=== PATIENT | female | born 2000 | race Caucasian/White ===

== ENCOUNTER 2021-06-27 10:40 | Emergency (ER) | payer SELFPAY ==
--- NOTE | ~2021-06-27 | US_ITS ---
EXAMINATION: US OB <= 14 weeks fetus EXAM DATE: 06/27/2021 17:08 INDICATION: and bleeding and vomiting. 1st trimester. TECHNIQUE: Pelvic obstetrical transabdominal sonogram was performed by a technologist. There are mu ltiple grayscale and Doppler images available for interpretation. There are no prior studies for [employer]. FINDINGS: Uterus measures 7.9 x 4.6 x 3.0 cm. There is intrauterine gestation sac. pole with heart rate confirmed at 117 beats per minute. The 5 mm crown-rump length corresponds to estimated ge stational age by ultrasound of 6 weeks 1 day, estimated date of confinement 02/19/2022. Yolk sac is i dentified. There is no sonographic evidence of subchorionic hemorrhage. Ovaries are morphological ly normal. No extrauterine is identified. IMPRESSION: Early live intrauterine gestation. Reviewed, dictated and finalized at location [facility]
[2021-06-27 11:05] VITALS: BP 138/99; PULSE 91; RESP 16; TEMP 36.5; O2SAT 100
[2021-06-27 13:07] VITALS: BP 123/86; PULSE 68; RESP 17; O2SAT 100
[2021-06-27 13:59] VITALS: BP 115/82; PULSE 71; RESP 19; O2SAT 99
[2021-06-27] MEDS: FAMOTIDINE 20 MG/2 ML VIAL IV PUSH (14:04)
[2021-06-27] MEDS: SODIUM CHLORIDE 0.9% IV 1,000 ML 999 ML IV CONT ×2 (14:05→16:40)
--- NOTE | 2021-06-27 14:06 | ED.GENADULT ---
HPI - General Adult General Chief complaint: Nausea/Vomiting/Diarrhea Stated complaint: Booster shot 5 days ago- throwing up since Time Seen by Provider: 06/27/21 13:49 Source: RN notes reviewed History of Present Illness HPI narrative: Patient presents emergency room from home for nausea vomiting. Patient states that she has been having nausea vomiting for the past 5 days and is unable to keep anything down. States that she has no abdominal pain with this except for when she is vomiting when she has cramping she denies any fevers or chills chest pain shortness of breath diarrhea or any other symptoms. Patient states she did just receive her COVID-19 vaccination booster 5 days ago as well states she is not taking medication at home Related Data Allergies Allergy/AdvReac Type Severity Reaction Status Date / Time No Known Allergies Allergy Mild Verified 10/11/07 00:18 Review of Systems Review of Systems: Gen.: Denies fevers or chills ENT: Denies congestion Respiratory: Denies shortness of breath or cough CV: Denies chest pain or palpitations GI: See HPI denies burning, urgency, frequency or hematuria Musculoskeletal: Denies back pain or muscle pain Neuro: Denies numbness, tingling, weakness or focal weakness Skin: Denies rash Except as documented, all other systems reviewed and negative [facility] Past Medical History Medical History (Updated 06/27/21 @ 17:33 by Rohit Tucker DO) Patient denies significant medical history Social History Social History (Updated 06/27/21 @ 14:07 by Rohit Tucker DO) Smoking status: Never smoker Exam Narrative: APPEARANCE: No acute distress, nontoxic, resting in bed EYES: EOMI HEENT: Normocephalic, atraumatic, OMM RESPIRATORY: No respiratory distress Clear to auscultation bilaterally with no rhonchi wheezing or rales. CARDIOVASCULAR: Regular rate and rhythm without murmurs rubs or gallops. ABDOMINAL: Soft, nontender, nondistended, no rebound or guarding : Normal external exam small amount of dark maroon blood in vaginal canal cervix closed MUSCULOSKELETAl: Moves all extremities. No clubbing, cyanosis or edema. NEURO: Awake and alert. Following commands, speech normal, no focal deficits SKIN:: Warm, dry. No rashes lesions or abrasions PSYCHIATRIC: Normal affect/mood, Course Course Emergency Course: Discussed with patient positive test she is unaware she was she is G1, P0 and does not currently have an DOMINATRIX Patient states nausea is better following Phenergan : Discussed Dr. Christian presentation work-up agrees with plan for discharge of Phenergan agrees with plan for RhoGam shot Discussed with patient results of workup and diagnosis. Discussed need for follow-up with primary care, proper use of medication, and reasons to return to the emergency department. Patient understands and agrees to current treatment plan Vital Signs Vital signs: Vital Signs Temperature 97.7 F 06/27/21 11:05 Pulse Rate 91 06/27/21 11:05 Respiratory Rate 16 06/27/21 11:05 Blood Pressure 138/99 H 06/27/21 11:05 Pulse Oximetry 100 06/27/21 11:05 Temperature 97.7 F 06/27/21 11:05 Pulse Rate 109 H 06/27/21 16:41 Respiratory Rate 20 06/27/21 16:41 Blood Pressure 153/94 H 06/27/21 16:41 Pulse Oximetry 99 06/27/21 16:41 Medical Decision Making Vital Signs Vital Signs: Vital Signs Temperature 97.7 F 06/27/21 11:05 Pulse Rate 91 06/27/21 11:05 Respiratory Rate 16 06/27/21 11:05 Blood Pressure 138/99 H 06/27/21 11:05 Pulse Oximetry 100 06/27/21 11:05 Temperature 97.7 F 06/27/21 11:05 Pulse Rate 109 H 06/27/21 16:41 Respiratory Rate 20 06/27/21 16:41 Blood Pressure 153/94 H 06/27/21 16:41 Pulse Oximetry 99 06/27/21 16:41 Lab Data Result diagrams: 06/27/21 14:02 06/27/21 14:02 Labs: Lab Results 06/27/21 06/27/21 06/27/21 Range/Units 14:02 14:02 14:04 WBC 7.9 (4.5-10
[2021-06-27] MEDS: ONDANSETRON INJ 4 MG/2 ML VIAL IV PUSH (14:10)
[2021-06-27 14:12] LABS: Basophils Absolute Auto 0.1 K/mm3 (0.0-0.1); Basophils Percent Auto 0.6 % (0.2-1.2); Eosinophils Percent Auto 0.1 % (0-4.4); Hemoglobin 12.6 g/dL (12.0-15.0); Immature Granulocyte Absolute 0.03 K/mm3 (0.00-0.031); Immature Granulocyte Percent A 0.4 % (0-0.5); Lymphocytes Absolute Auto 1.84 K/mm3 (0.9-3.2); Lymphocytes Percent Auto 23.3 % (18.3-44.2); Mean Corpuscular HGB Conc 33.2 g/dl (32-36); Mean Corpuscular Hemoglobin 29.5 pg (26-34); Mean Platelet Volume 9.5 fl (7.4-10.4); Monocytes Absolute Auto 0.5 K/mm3 (0.1-0.6); Monocytes Percent Auto 5.9 % (2.6-8.5); Neutrophils Absolute Auto 5.5 K/mm3 (1.3-6.7); Neutrophils Percent Auto 69.7 % (45.5-73.1); Platelet Count Result 420 k/mm3 (150-375); Red Blood Count 4.27 M/mm3 (4.2-5.4); Red Cell Distribution Width 14.7 % (11.5-14.5); White Blood Count 7.9 K/mm3 (4.5-10.0)
[2021-06-27 14:19] LABS: Add Urine Microscopic? YES; Appearance Urine Cloudy (Clear); Bacteria Urine Trace /hpf; Bilirubin Urine Negative (Negative); Blood Urine 2+ (Negative); Color Urine Amber (Yellow); Glucose Urine UA Negative (Negative); Ketones Urine 2+ mg/dL (Negative); Leukocyte Esterase Ur Trace LEU/UL (Negative); Mucus Urine Heavy /lpf; Nitrate Urine Negative (Negative); Protein Urine 1+ mg/dL (Negative); Squamous Epithelial Cell Urine Many /hpf (Few)
[2021-06-27 14:20] LABS: Specific Grav Ur 1.031 (1.001-1.035)
[2021-06-27 14:21] LABS: Alanine Aminotransferase 44 U/L (4-35); Albumin Level 4.8 g/dL (3.5-5.1); Alkaline Phosphatase 123 U/L (38-126); Anion Gap 15 mmol/L (8-16); Aspartate Amino Transferase 36 U/L (14-36); Bilirubin,Total 0.8 mg/dL (0.2-1.3); Blood Urea Nitrogen 11 mg/dL (7-17); Calcium 9.7 mg/dL (8.4-10.2); Carbon Dioxide 21 mmol/L (22-30); Chloride 99 mmol/L (98-107); Estimated CRCL calculation 91 ml/min; Estimated Glomerular Filt Rate > 60; Glucose 85 mg/dL (65-110); Lipase 76 U/L (23-300); Potassium 3.7 mmol/L (3.4-5.0); Sodium 135 mmol/L (137-145)
[2021-06-27 15:45] LABS: Pregnancy On Board Control Positive; Urine Pregnancy Test Positive
[2021-06-27] MEDS: PROMETHAZINE HCL 25 MG/ML AMPUL 12.5 MG IV PUSH (16:40)
[2021-06-27 16:41] VITALS: BP 153/94; PULSE 109; RESP 20; O2SAT 99
[2021-06-27 17:35] VITALS: BP 126/76; PULSE 75; RESP 16; TEMP 36.8; O2SAT 100
[2021-06-27 17:46] VITALS: BP 126/78; PULSE 78; RESP 16; TEMP 36.8; O2SAT 99
== END 2021-06-27 17:49 | disposition home or self-care (01) ==
PROVIDERS: Emergency Provider Emergency Medicine; PCP Internal Medicine
DX: O20.0 Threatened abortion (principal); Z3A.00 Weeks of gestation of pregnancy not specified
CPT/HCPCS: 36415; 76801; 80053; 81001; 81025; 83690; 84702; 85025; 85461; 87086; 87088; 90384; 96361; 96372; 96374; 96375; 99284; J2405; J2550; J2790; J7030

== ENCOUNTER 2021-07-02 09:26 | Emergency (ER) | payer SELFPAY ==
--- NOTE | ~2021-07-02 | US_ITS ---
EXAMINATION: US OB <= 14 weeks fetus DATE: 07/02/2021 12:40 INDICATION: Cramping and vaginal bleeding during first trimester of TECHNIQUE: Real-time pelvic ultrasound utilizing both a transvaginal and transabdominal probe was pe rformed. The interpreting radiologist was not present for the study. COMPARISON: 06/27/2021 FINDINGS: The uterus measures 7.8 x 5.3 x 4.6 cm. There is an intrauterine gestational sac. A yolk sac and fet al pole are identified. The crown rump length measures 8 mm, which correlates with an estimated gesta tional age of 6 weeks and 5 days. heart motion is identified measuring 117 beats per minute (bp m) by M-mode Doppler. No evident subchorionic hematoma. The right ovary is not visualized. The left ovary measures 1.9 x 1.8 x 1.4 cm. There is no free fluid in the pelvis. IMPRESSION: 1. Single living fetus with heart rate of 117 bpm. 2. Peter-rump length of 8 mm which is concordant within 1 day of the previously estimated gestational age by ultrasound of 6 weeks 6 day(s) with ultrasound estimated date of delivery (ISAIAS) of 02/19/2022. Reviewed, dictated and finalized at location [facility] IMPRESSION: 1. Single living fetus with heart rate of 117 bpm. 2. Peter-rump length of 8 mm which is concordant within 1 day of the previously estimated gestational age by ultrasound of 6 weeks 6 day(s) with ultrasound es timated date of delivery (ISAIAS) of 02/19/2022.
[2021-07-02 09:30] VITALS: BP 122/75; PULSE 94; RESP 16; TEMP 36; O2SAT 100
[2021-07-02 11:45] VITALS: BP 123/87; PULSE 75; RESP 18; O2SAT 100
--- NOTE | 2021-07-02 12:35 | ED.PREGNANCY ---
HPI - General Chief complaint: Vaginal Bleeding Stated complaint: , bleeding Time Seen by Provider: 07/02/21 11:34 Source: patient, RN notes reviewed and old records reviewed Mode of arrival: ambulatory Limitations: no limitations History of Present Illness HPI Narrative: This is a 21 year old female approximately 6 wks GA who presents for evaluation of possible miscarriage. She has been having intermittent vaginal bleeding for 1 week. She was seen in ED on 06/27/21 and diagnosed with threatened miscarriage. She has returned today because she reports waking up with significant vaginal bleeding and cramping. She reports having to change her pad 2 times in past 4 hours . She does not report passing clots. She is worried that she is having a miscarriage. She was given rhogam on previous ER visit. Related Data Home Medications Medication Instructions Recorded Confirmed No Home Medications 07/02/21 07/02/21 Allergies Allergy/AdvReac Type Severity Reaction Status Date / Time No Known Allergies Allergy Mild Verified 07/02/21 12:33 Review of Systems Review of Systems: All systems reviewed & are unremarkable except as noted in HPI and below PMFSH Past Medical History Medical History Patient denies significant medical history Social History Social History Smoking status: Never smoker Exam Const: General: no acute distress and alert Orientation/consciousness: patient oriented x3 Eyes: EOM: EOMs intact bilaterally Chest: Chest palpation & inspection: normal inspection of the chest Resp: Effort & Inspection: normal respiratory effort and no retractions Auscultation: clear to auscultation bilaterally Cardio: Rate: regular rate Rhythm: regular rhythm Heart sounds: no murmurs GI: GI Palp: Yes Soft to palpation, No Tenderness to palpation present (GI) and No Guarding due to palpation present (GI) Auscultation: normal bowel sounds : Speculum Exam - Cervix: Cervical os closed Other: no active bleeding or clots. bloody mucous seen at cervix Skin: General skin exam: normal color Rashes: no rashes Neuro: General: patient oriented x3 and moves all extremities Extrem: General: normal to inspection Psych: Mental Status: mental status grossly normal Affect: normal affect Course Reevaluation(s) Reevaluation #1: I discussed with patient US finding. Fheart tones still going. She was given return precautions and bleeding precautions. She now reports having nausea and vomiting. She does not want to stay for PO challenge or IV. Her mother was at bedside during discussion. Date: 07/02/21 Time: 14:12 Vital Signs Vital signs: Vital Signs Temperature 96.8 F L 07/02/21 09:30 Pulse Rate 94 07/02/21 09:30 Respiratory Rate 16 07/02/21 09:30 Blood Pressure 122/75 07/02/21 09:30 Pulse Oximetry 100 07/02/21 09:30 Temperature 96.8 F L 07/02/21 09:30 Pulse Rate 80 07/02/21 14:52 Respiratory Rate 18 07/02/21 14:52 Blood Pressure 125/86 07/02/21 14:52 Pulse Oximetry 100 07/02/21 14:52 MDM - OB/Uterine Contractions Lab Data Attestation: I reviewed the patient's lab results. Labs: Lab Results 07/02/21 Range/Units 12:58 Urine Color Joanna (Yellow) Urine Appearance Cloudy H (Clear) Urine pH 8.0 (5.0-9.0) Ur Specific [place] 1.025 (1.001-1.035) Urine Protein 2+ H (Negative) mg/dL Urine Glucose (UA) Negative (Negative) mg/dL Urine Ketones 2+ H (Negative) mg/dL Ur Blood (Man) 2+ H (Negative) Urine Nitrate Negative (Negative) Urine Bilirubin Negative (Negative) Urine Urobilinogen Negative (<2.0) mg/dL Leukocyte Esterase Rfl Trace H (Negative) FAY/UL Urine RBC 3-5 H (0-2) /hpf Urine WBC 10-15 H /hpf Ur Squamous Epith Cells Many H (Few) /hpf Urine Bacteria Trace /hpf Urine Mucus
[2021-07-02 13:24] LABS: Add Urine Microscopic? YES; Appearance Urine Cloudy (Clear); Bacteria Urine Trace /hpf; Bilirubin Urine Negative (Negative); Blood Urine 2+ (Negative); Color Urine Amber (Yellow); Glucose Urine UA Negative (Negative); Ketones Urine 2+ mg/dL (Negative); Leukocyte Esterase Ur Trace LEU/UL (Negative); Mucus Urine Heavy /lpf; Nitrate Urine Negative (Negative); Protein Urine 2+ mg/dL (Negative); Specific Grav Ur 1.025 (1.001-1.035); Squamous Epithelial Cell Urine Many /hpf (Few); Urobilinogen Urine Negative mg/dL (<2.0)
[2021-07-02] MEDS: PROMETHAZINE HCL 12.5 MG TABLET PO (13:51)
[2021-07-02 14:52] VITALS: BP 125/86; PULSE 80; RESP 18; O2SAT 100
== END 2021-07-02 14:53 | disposition home or self-care (01) ==
PROVIDERS: Emergency Provider General Practice; PCP Internal Medicine
DX: O20.0 Threatened abortion (principal); Z3A.01 Less than 8 weeks gestation of pregnancy
CPT/HCPCS: 76801; 81001; 87086; 87088; 99284; A9270